=== PATIENT | male | born 1960 | race Caucasian/White ===

== ENCOUNTER 2017-05-13 14:39 | Emergency (ER) | payer MEDICARE ==
[2017-05-13 14:53] VITALS: O2SAT 98
[2017-05-13] MEDS ORDERED: TORAdol 30 mg Injection IV ONE (15:18)
[2017-05-13] MEDS ORDERED: Catapres 0.1 MG PO ONE (15:19)
[2017-05-13] MEDS ORDERED: Catapres 0.1 MG ONE (15:25)
[2017-05-13] MEDS ORDERED: Sodium Chloride 0.9% 1000 ML 1,000 ML ONE (15:25)
[2017-05-13] MEDS ORDERED: TORAdol 30 mg Injection ONE (15:25)
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
[2017-05-13] MEDS ORDERED: Sodium Chloride 0.9% 1000 ML 1,000 ML IV SCH (15:30)
[2017-05-13 15:38] LABS: BASOPHIL % 0.8 % (0.0-0.4); Basophil (Absolute #) 0.11 (0-0.4); Eosinophil % 4.6 % (0.00-5.0); Granulocyte Absolute (ANC) 6.86 (1.4-6.9); Granulocytes % 52.9 % (36.0-66.0); Hematocrit 46.3 % (42-50); Hemoglobin 16.1 gm/dl (12.5-18.0); Lymphocyte (Absolute #) 4.56 (1.0-4.6); Lymphocytes % 35.1 % (24.0-44.0); Mean Cell Volume 86.2 fl (78-100); Mean Corpuscular Hgb Concent. 34.8 g/dl (32-36); Mean Platelet Volume 10.4 fl (6-9.5); Monocyte (Absolute #) 0.86 (0.0-1.3); Monocytes % 6.6 % (0.0-12.0); Platelet Count 274 K/mm3 (150-450); Red Blood Count 5.37 M/mm3 (4.1-5.6); Red Cell Distribution Width 14.1 % (11.5-14.0)
[2017-05-13 16:12] LABS: ANION GAP 17.3 MEQ/L (5-15); BLOOD UREA NITROGEN 12 mg/dL (9-20); CHLORIDE 103 mEq/L (98-107); Calcium 8.8 mg/dL (8.5-10.1); Carbon Dioxide 22.9 mEq/L (21-32); Creatinine 1 0.87 mg/dl (0.55-1.30); EST GLOMERULAR FILTRATION RATE > 60 ML/MIN; Glucose 82 MG/DL (70-110); Potassium 3.7 mEq/L (3.5-5.1); SODIUM 140 mEq/L (136-145)
[2017-05-13 16:54] VITALS: BP 147/87; PULSE 67
== END 2017-05-13 16:55 | disposition home or self-care (01) ==
LOC: ED 14:39
DX: I10 Essential (primary) hypertension (principal); M54.2 Cervicalgia; Z98.890 Other specified postprocedural states
CPT/HCPCS: 36000; 36415; 80048; 85025; 93005; 93041; 96360; 96361; 96372; 96374; 99283; 99284; J1885; A9270-GY

== ENCOUNTER 2021-11-26 16:49 | Emergency (ER) | payer MEDICARE ==
[2021-11-26] MEDS ORDERED: XYLOCAINE 1% HCL 20 ML MDV IJ ONE (16:50)
--- NOTE | 2021-11-26 16:53 | ERPHSYRPT ---
- History of Present Illness Time Seen by Provider: 11/26/21 16:52 Source: patient Exam Limitations: no limitations Physician History: This is a 61-year-old obese white male who is diabetic, has a history of hypertension, hyperlipidemia, gastroesophageal reflux disease and peripheral neuropathy and was moving a bed couch when it fell onto his right great toe 3 days ago. Patient has noticed swelling and redness increasing and is concerned about infection. Patient is a current daily smoker of cigarettes. Method of Injury: direct blow Occurred: days ago (3) Quality: constant, aching Severity of Pain-Max: moderate Severity of Pain-Current: moderate Lower Extremities Pain: 1st toe: right Modifying Factors: Improves With: movement Associated Symptoms: other (Notes to bear weight but can do so) Allergies/Adverse Reactions: No Known Drug Allergies Allergy (Verified 11/26/21 17:42) Home Medications: Duloxetine HCl 05/13/17 [History] Duloxetine HCl 60 mg DAILY 05/13/17 [History] Gabapentin 800 mg TID 05/13/17 [History] Metformin HCl 500 mg BID 05/13/17 [History] Metoprolol Succinate [Toprol Xl] 25 mg DAILY 05/13/17 [History] Omeprazole 40 mg DAILY 05/13/17 [History] Simvastatin 40 mg DAILY 05/13/17 [History] Tamsulosin HCl 0.4 mg DAILY 05/13/17 [History] lisinopriL [Lisinopril] 40 mg DAILY 05/13/17 [History] Hx Tetanus, Diphtheria Vaccination/Date Given: Yes Hx Influenza Vaccination/Date Given: Yes Hx Pneumococcal Vaccination/Date Given: Yes Travel Risk - International Travel Have you traveled outside of the country in past 3 weeks: No - Coronavirus Screening Are you exhibiting any of the following symptoms?: No Close contact with a COVID-19 positive Pt in past 14-21 Days: No - Review of Systems Constitutional: No Symptoms Eyes: No Symptoms Ears, Nose, & Throat: No Symptoms Respiratory: No Symptoms Cardiac: No Symptoms Abdominal/Gastrointestinal: No Symptoms Genitourinary Symptoms: No Symptoms Musculoskeletal: Injury (Right great toe), Joint Redness, Joint Swelling Skin: Cellulitis Neurological: No Symptoms Psychological: No Symptoms Endocrine: No Symptoms Hematologic/Lymphatic: No Symptoms Immunological/Allergic: No Symptoms All Other Systems: Reviewed and Negative - Past Medical History Pertinent Past Medical History: Yes Neurological History: Peripheral Neuropathy Cardiac History: High Cholesterol, Hypertension Respiratory History: No Pertinent History Endocrine Medical History: Diabetes Type II Musculoskeletal History: Other Other Medical History: chronic neck pain , hx of kidney ca - Past Surgical History Past Surgical History: Yes Genitourinary: Kidney Surgery Other Surgical History: left kidney surgery,neck adn back surg - Social History Smoking Status: Current every day smoker Exposure to second hand smoke: Yes Drug Use: none Patient Lives Alone: No - Nursing Vital Signs Nursing Vital Signs: Initial Vital Signs Temperature 98.3 F 11/26/21 17:37 Pulse Rate 76 11/26/21 17:37 Respiratory Rate 22 11/26/21 17:37 Blood Pressure 147/86 11/26/21 17:37 O2 Sat by Pulse Oximetry 96 11/26/21 17:37 Pain Scale Pain Intensity 10 - Physical Exam General Appearance: no apparent distress, alert, anxiety, obese Eyes, Ears, Nose, Throat Exam: normal ENT inspection, moist mucous membranes Neck Exam: normal inspection, non-tender, supple, full range of motion Cardiovascular/Respiratory Exam: chest non-tender, no respiratory distress Gastrointestinal/Abdominal Exam: non-tender Back Exam: normal inspection, normal range of motion, No CVA tenderness, No vertebral tenderness Hips Exam: bilateral: non-tender, normal inspection, normal range of motion, no evidence of injury Legs Exam: bilateral leg: non-tender, normal inspection, normal range of motion, no evidence of injury Knees Exam: bilateral knee: non-tender, normal inspection, normal range of motion, no evidence of injury Ankle Exam: bilateral ankle: non-tender, normal inspection, normal range of motion, no evidence of injury Foot Exam: right foot: normal range of motion, bone tenderness (Right first toe), soft tissue tenderness (Right first toe), swelling (Toes of right foot), other (Redness and ecchymosis of right first toe), left foot: non-tender, normal inspection, no evidence of injury Neuro/Tendon Exam: normal sensation, normal motor functions, normal tendon functions, responds to pain, no evidence tendon injury Mental Status Exam: alert, oriented x 3, cooperative Skin Exam: normal color, warm, dry SpO2 Interpretation: normal - Course Nursing assessment & vital signs reviewed: Yes Ordered Tests: Active Orders 24 hr Category Date Time Status FOOT (MINIMUM 3 VIEWS) Stat Exams 11/26/21 17:43 Taken Medication Summary Discontinued Medications Generic Name Dose Route Start Last Admin Trade Name Evon PRN Reason Stop Dose Admin Ceftriaxone Sodium 1,000 mg 11/26/21 17:54 11/26/21 19:42 Ceftriaxone Sodium 1000 Mg Inj Vial IM 11/26/21 17:55 1,000 mg STAT ONE Administration Ceftriaxone Sodium Confirm 11/26/21 19:25 Ceftriaxone Sodium 1000 Mg Inj Vial Administered 11/26/21 19:26 Dose 1,000 mg .ROUTE .STK-MED ONE Oxycodone/Acetaminophen 1 tab 11/26/21 17:54 11/26/21 19:42 Oxycodone Hcl/Apap 5 Mg/325 Mg Tablet PO 11/26/21 17:55 1 tab STAT STA Administration Oxycodone/Acetaminophen 2 tab 11/26/21 19:20 Oxycodone Hcl/Apap 5 Mg/325 Mg Tablet PO 11/26/21 19:21 SENT HOME W/ PATIENT STA Oxycodone/Acetaminophen Confirm 11/26/21 19:24 Oxycodone Hcl/Apap 5 Mg/325 Mg Tablet Administered 11/26/21 19:25 Dose 1 tab .ROUTE .STK-MED ONE Trimethoprim/Sulfamethoxazole 1 tab 11/26/21 17:55 11/26/21 19:42 Smz/Tmp Ds Tablet 1 Tablet PO 11/26/21 17:56 1 tab STAT ONE Administration Trimethoprim/Sulfamethoxazole Confirm 11/26/21 19:24 Smz/Tmp Ds Tablet 1 Tablet Administered 11/26/21 19:25 Dose 1 tab PO .STK-MED ONE - Progress Progress: improved, pain not gone completely, re-examined Progress Note: 11/26/21 19:51 X-ray of right foot shows no acute fracture or dislocation. Counseled pt/family regarding: diagnosis, need for follow-up, rad results - Departure Departure Disposition: Home Clinical Impression: Contusion of right great toe without damage to nail, Cellulitis of right toe Condition: Stable Critical Care Time: No Referrals: NEERAJ CASTRO MD [Primary Care Provider] - Follow up/PCP as directed Additional Instructions: Ice bath right foot 3 times a day for 5 minutes at a time. When not in an ice bath, keep the right foot elevated above the level of your heart. Take your pain medicine as prescribed. Take your antibiotics as prescribed. Follow-up at the [facility] orthopedic clinic tomorrow morning between 8 and 10 AM. Is a walk-in clinic and you do not need to have an appointment. Prescriptions: Oxycodone HCl/Acetaminophen [Percocet 5-325 mg Tablet] 1 each PO Q8H PRN PRN #6 tablet MDD 3 PRN Reason: Moderate To Severe Pain Smz/Tmp Ds Tablet [Bactrim Ds Tablet] 1 udtab PO BID #14 tablet
[2021-11-26] MEDS ORDERED: Rocephin 1000 MG INJ IM ONE (17:54)
[2021-11-26] MEDS ORDERED: PERCOCET TABLET 5/325MG PO STA ×2 (17:54→19:20)
[2021-11-26] MEDS ORDERED: BACTRIM DS TABLET PO ONE ×2 (17:55→19:24)
[2021-11-26] MEDS ORDERED: PERCOCET TABLET 5/325MG ONE ×2 (19:24→20:23)
[2021-11-26] MEDS ORDERED: Rocephin 1000 MG INJ ONE (19:25)
[2021-11-26 20:54] VITALS: BP 127/73; PULSE 78; O2SAT 94
--- NOTE | 2021-11-27 08:49 | XRAY ---
Indication: Great toe swelling and bruising following injury. Comparison: May 30, 2007 3 nonweightbearing views right foot obtained. Again no bony, articular, or soft tissue abnormalities.
== END 2021-11-26 20:43 | disposition home or self-care (01) ==
LOC: ED 16:49
DX: S90.111A Contusion of right great toe without damage to nail, initial encounter (principal); W20.8XXA Other cause of strike by thrown, projected or falling object, initial encounter; L03.031 Cellulitis of right toe; M79.674 Pain in right toe(s); E78.5 Hyperlipidemia, unspecified; I10 Essential (primary) hypertension; E11.42 Type 2 diabetes mellitus with diabetic polyneuropathy; Z72.0 Tobacco use; Z79.84 Long term (current) use of oral hypoglycemic drugs; Z79.899 Other long term (current) drug therapy; Z79.891 Long term (current) use of opiate analgesic
CPT/HCPCS: 73630; 96372; 99283; J0696; A9270-GY